=== PATIENT | male | born 1970 | race Caucasian/White ===

== ENCOUNTER 2021-11-16 07:54 | Day surgery (SDC) | payer OTHER ==
[~2021-11-16 07:54] MED LIST: Lactated Ringers 1,000 ML IV SCH; Sodium Chloride 0.9% 10 ML Syringe FLUSH PRN
[2021-11-16] MEDS ORDERED: Glycopyrrolate 0.2 MG/ML 5 ML MDV IV ONE (07:55)
[2021-11-16] MEDS ORDERED: Propofol 200 MG/20 ML SDV IV ONE (07:55)
[2021-11-16] MEDS ORDERED: Ketamine 500 mg/10 ML MDV IV ONE (07:55)
[2021-11-16] MEDS ORDERED: Midazolam 1 MG/ML 2 ML SDV IV ONE (07:55)
== END 2021-11-16 10:58 | disposition home or self-care (01) ==
LOC: FB.SDS 07:54
PROVIDERS: ATTEND Surgery
DX: Z12.11 Encounter for screening for malignant neoplasm of colon (principal); D12.6 Benign neoplasm of colon, unspecified; K62.1 Rectal polyp; K57.30 Diverticulosis of large intestine without perforation or abscess without bleeding; K58.9 Irritable bowel syndrome, unspecified; K36 Other appendicitis; E78.00 Pure hypercholesterolemia, unspecified; I10 Essential (primary) hypertension; E66.9 Obesity, unspecified; G47.30 Sleep apnea, unspecified; Z98.890 Other specified postprocedural states; Z79.899 Other long term (current) drug therapy
CPT/HCPCS: 00812-QZ; 88305; J2250; J2704; J3490; J7120